=== PATIENT | male | born 1945 | race Caucasian/White ===

== ENCOUNTER 2019-02-23 13:19 | Emergency (ER) | payer MEDICARE, BC ==
--- NOTE | 2019-02-23 13:54 | RAD ---
RADIOGRAPH RIGHT WRIST 3 VIEWS: DATE: 02/23/2019. TIME: 1:35 p.m. HISTORY: A 74-year-old male status post acute traumatic injury to right wrist from fall with pain. COMPARISON: None. FINDINGS: Comminuted fracture of distal radial metaphysis, reaching the ulnar side of the distal radial epiphys is. Dorsal angulation of distal fragments (volar angulation of the fracture apex). Fracture involve s the radiocarpal articular surface opposite to the lunate, with widening of the AP dimension between distal radial fracture fragments a distance of approximately 0.2 to 0.3 cm. No dislocation. Scapho lunate interval normal. Fracture at base of ulnar styloid process with minimal displacement. 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 IMPRESSION: 1. Acute, traumatic, intraarticular distal radial metaphyseal and epiphyseal fracture, with mild com minution. 2. Fracture at base of ulnar styloid process. POS: [facility]
[2019-02-23] MEDS ORDERED: Lidocaine 1% (PF) 30 ML VIAL ONE (14:28)
[2019-02-23] MEDS ORDERED: Bupivacaine 0.25% 10 ML VIAL ONE (14:28)
[2019-02-23] MEDS ORDERED: HYDROcodone/Acetaminophen 5/325 mg Tablet ONE (15:30)
--- NOTE | 2019-02-23 15:56 | RAD ---
EXAM: 3 views of the right wrist HISTORY: Wrist pain COMPARISON: 02/23/2019 at 1:34 PM FINDINGS: 3 views of the right wrist shows an overlying fiberglass splint which obscures fine bony an d soft tissue detail. A comminuted intra-articular fracture of the distal radius and associated ulnar styloid fracture are again seen. IMPRESSION: Distal radius and ulnar styloid fractures
== END 2019-02-23 16:12 | disposition home or self-care (01) ==
LOC: ERS 13:19
DX: S52.501A Unspecified fracture of the lower end of right radius, initial encounter for closed fracture (principal); S52.611A Displaced fracture of right ulna styloid process, initial encounter for closed fracture; I49.9 Cardiac arrhythmia, unspecified; I48.91 Unspecified atrial fibrillation; K21.9 Gastro-esophageal reflux disease without esophagitis; N40.0 Benign prostatic hyperplasia without lower urinary tract symptoms; Z79.82 Long term (current) use of aspirin; Z79.899 Other long term (current) drug therapy; W18.42XA Slipping, tripping and stumbling without falling due to stepping into hole or opening, initial encounter
CPT/HCPCS: 25605; J2001; S0020